=== PATIENT | female | born 1975 | race Caucasian/White ===

== ENCOUNTER → 2020-05-13 | Outpatient (CLI) | payer OTHER ==
[~2020-05-13] MED LIST: BELI120V IV; CYCL5TAB PO; ESTR0.5T PO; HYDR200T72 PO; LINA145C PO; MULT-249 PO; URSO250T10 PO; probiotic PO; vitamin D PO
== END | disposition home or self-care (01) ==
LOC: STAR 11:01
PROVIDERS: ATTEND Student in an Organized Health Care Education/Training Program
DX: Z01.818 Encounter for other preprocedural examination (principal); N20.0 Calculus of kidney; Z20.828 Contact with and (suspected) exposure to other viral communicable diseases
CPT/HCPCS: 87635; 93005

== ENCOUNTER 2020-05-17 06:49 | Day surgery (SDC) | payer OTHER ==
[~2020-05-17] VITALS: Ht 165.1 cm; Wt 64.5 kg
[2020-05-17 07:25] VITALS: BP 119/77
[2020-05-17] MEDS ORDERED: LACTATED RINGERS 1,000 ML IV SCH (07:30)
[2020-05-17] MEDS ORDERED: CHLORHEXIDINE 15 ML UDC MM ONE (07:30)
[2020-05-17] MEDS ORDERED: MIDAZOLAM 1 MG/ML, 2ML ONE (08:38)
[2020-05-17] MEDS ORDERED: FENTANYL PF 100 MCG/2ML ONE (08:38)
[2020-05-17] MEDS ORDERED: PROPOFOL 150 ML ONE (08:45)
[2020-05-17] MEDS ORDERED: ONDANSETRON 2MG/ML, 2ML ONE (08:55)
[2020-05-17] MEDS ORDERED: DEXAMETHASONE 4 MG/ML, 1ML ONE (08:55)
[2020-05-17] MEDS ORDERED: MEPERIDINE/PF 25MG/0.5ML IVPush PRN (09:30)
[2020-05-17] MEDS ORDERED: HYDROmorphone 2 MG/ML, 1ML IVPush PRN (09:30)
[2020-05-17] MEDS ORDERED: FENTANYL PF 100 MCG/2ML IV PRN (09:30)
[2020-05-17] MEDS ORDERED: LABETALOL 5MG/ML, 20ML IV PRN (09:30)
[2020-05-17] MEDS ORDERED: ALBUTEROL SULFATE 2.5 MG/3 ML NPPB PRN (09:30)
[2020-05-17] MEDS ORDERED: PROMETHAZINE 25 MG/ML, 1ML IV PRN (09:30)
[2020-05-17] MEDS ORDERED: hydrALAzine 20 MG/ML, 1ML IV PRN (09:30)
[2020-05-17] MEDS ORDERED: DIAZEPAM 5 MG/ML, 2ML IVPush PRN (09:30)
[2020-05-17] MEDS ORDERED: OXYcodone 5 MG/5 ML ORAL.SOL UDC PO PRN (09:30)
[2020-05-17] MEDS ORDERED: KETOROLAC 30 MG/1 ML IV PRN (09:30)
[2020-05-17] MEDS ORDERED: ACETAMINOPHEN 325 MG TABLET PO PRN (09:30)
[2020-05-17] MEDS ORDERED: ONDANSETRON ODT 8 MG ONE (11:30)
[2020-05-17] MEDS ORDERED: ONDANSETRON ODT 8 MG PO ONE (11:30)
== END 2020-05-17 11:50 | disposition home or self-care (01) ==
LOC: OUT 06:49
PROVIDERS: ATTEND Student in an Organized Health Care Education/Training Program
DX: N20.0 Calculus of kidney (principal); N39.0 Urinary tract infection, site not specified; M32.9 Systemic lupus erythematosus, unspecified; M06.9 Rheumatoid arthritis, unspecified; M35.00 Sjogren syndrome, unspecified; I73.00 Raynaud's syndrome without gangrene; F17.200 Nicotine dependence, unspecified, uncomplicated; Z79.899 Other long term (current) drug therapy; Z88.2 Allergy status to sulfonamides; Z88.5 Allergy status to narcotic agent; Z88.8 Allergy status to other drugs, medicaments and biological substances; Z91.040 Latex allergy status; Z84.1 Family history of disorders of kidney and ureter
CPT/HCPCS: 52356; 82360; 88300; C1758; C1769; C2617; J1100; J1885; J2250; J2405; J2704; J3010; J7120; Q0162